=== PATIENT | male | born 1985 | race Caucasian/White ===

== ENCOUNTER 2021-06-06 07:37 | Emergency (ER) | payer SELFPAY ==
[2021-06-06 08:34] VITALS: BP 99/69; PULSE 59; TEMP 97.7; BMI 26.6
[2021-06-06] MEDS ORDERED: SODIUM CHLORIDE 1,000 ML IV STA (08:57)
[2021-06-06] MEDS ORDERED: ACETAMINOPHEN 1000 MG/100 ML VIAL (NON FORMULARY) IVPB ONE (08:57)
[2021-06-06] MEDS ORDERED: ACETAMINOPHEN INJECTION 100 ML IVPB ONE (09:04)
[2021-06-06 10:41] LABS: URINE APPEARANCE Clear; URINE BILIRUBIN Negative (NEGATIVE); URINE COLOR Yellow; URINE GLUCOSE (UA) Negative (NEGATIVE); URINE KETONE Negative (NEGATIVE); URINE LEUK ESTERASE Negative (NEGATIVE); URINE NITRITE Negative (NEGATIVE); URINE PROTEIN Negative (NEGATIVE); URINE UROBILINOGEN 0.2 mg/dL (0.2-1.0)
[2021-06-06 11:51] LABS: EPI CELLS 0.7 /uL (0-25.1); URINE RBC 4.8 /uL (0-23.9); URINE WBC 1.9 /uL (0-25.8)
[2021-06-06 12:07] LABS: BASO % 0.9 % (0-2.0); EOS % 2.7 % (0-4.5); HEMATOCRIT 42.5 % (35.4-49); HEMOGLOBIN 14.5 GM/dL (11.7-16.9); LYMPH % 30.7 % (8-40); MCH 29.1 pg (25.7-33.7); MCHC 34.1 g/dl (32.0-35.9); MEAN CELL VOLUME 85.3 fl (80-96); MEAN PLT VOLUME 8.2 fl (7.5-11.1); MONO % 8.9 % (3.8-10.2); NEUT % 56.8 % (42.8-82.8); PLATELET COUNT 206 10^3/uL (134-434); RBC 4.98 M/mm3 (4.00-5.60); RDW 14.1 % (11.9-15.9); WHITE BLOOD COUNT 5.1 K/mm3 (4.0-10.0)
[2021-06-06 12:26] LABS: CALCIUM 8.8 mg/dL (8.5-10.1)
[2021-06-06 12:27] LABS: BLOOD UREA NITROGEN 14.1 mg/dL (7-18)
[2021-06-06 12:30] LABS: CREATININE 0.7 mg/dL (0.55-1.3)
[2021-06-06 12:31] LABS: BILIRUBIN,TOTAL 0.4 mg/dL (0.2-1)
[2021-06-06 12:32] LABS: TOT PROT 7.9 g/dl (6.4-8.2)
[2021-06-06] MEDS ORDERED: KETOROLAC TROMETHAMINE 60 MG/2 ML VIAL IVPB ONE (13:30)
[2021-06-06] MEDS ORDERED: KETOROLAC TROMETHAMINE 15 MG/ML VIAL ONE (14:12)
== END 2021-06-06 15:08 | disposition home or self-care (01) ==
LOC: JER 07:37
PROC: 3E033NZ Introduction of Analgesics, Hypnotics, Sedatives into Peripheral Vein, Percutaneous Approach (ICD-10-PCS; principal; 2021-06-06)
PROC: 3E0333Z Introduction of Anti-inflammatory into Peripheral Vein, Percutaneous Approach (ICD-10-PCS; 2021-06-06)
PROC: 3E0337Z Introduction of Electrolytic and Water Balance Substance into Peripheral Vein, Percutaneous Approach (ICD-10-PCS; 2021-06-06)
DX: R10.84 Generalized abdominal pain (principal)
CPT/HCPCS: 74176-TC; 80053; 81003; 83690; 85025; 87086; 99284-25; J0131